=== PATIENT | female | born 2000 | race Two or more races ===

== ENCOUNTER 2022-11-20 11:36 | Emergency (ER) | payer MEDICAID, SELFPAY ==
[2022-11-20 11:59] VITALS: BP 109/72; PULSE 88; RESP 18; TEMP 36.1; O2SAT 99; BMI 24.2
--- NOTE | 2022-11-20 13:47 | ED_ITS ---
HPI - General Adult General Time Seen by Provider: 13:48 Date Seen: 11/20/22 Chief complaint: Shortness of Breath/Dyspnea Stated complaint: Difficulty Breathing Time Seen by Provider: 11/20/22 13:47 Source: patient Mode of arrival: ambulatory Limitations: no limitations History of Present Illness HPI narrative: Valeria is a 22 year old female with no past medical history who presents to the ED via private care with shortness of breath. Patient states she has had progressively worsening shortness of breath over the last 2 weeks, he has also had a nonproductive cough, to the point where she vomits with coughing fits. She noticed worsening shortness of breath today having difficulty taking a deep breath with some heaviness, also worse when she lays flat she feels like it is hard to take a deep breath, no sick contacts. She has had some diarrhea over the last 4 days, she denies any fevers but has some chills, she states she just got over her menstrual cycle. No abnormal periods. She denies any palpitations, lightheadedness or dizziness. Patient has no contributing family history. No history of any PEs or DVTs. She is not currently on any medication, she does not smoke cigarettes, she denies any alcohol use. She was more concerned today due to the worsening shortness of breath, she denies any trouble breathing while at rest, she denies any ear pain, headache, sore throat or congestion. No other concerns at this time. Related Data Previous Rx's Medication Instructions Recorded amoxicillin 875 mg-potassium 1 tab PO BID 10 days #20 tabs 11/20/22 clavulanate 125 mg tablet azithromycin 250 mg tablet See Rx Instructions PO .COMPLEX #6 11/20/22 tabs Allergies Allergy/AdvReac Type Severity Reaction Status Date / Time No Known Drug Allergies Allergy Verified 11/20/22 12:01 Review of Systems Status of ROS: Reports: 10 or more systems reviewed and unremarkable except as noted in History and below PFSH PFSH Social History Smoking Status: Never smoker Do you use any of these nicotine containing products: None How often do you have a drink containing alcohol: never AUDIT-C Alcohol total score: 0 Non-prescribed substance use: denies use service: No Exam Narrative: Exam Narrative: General: No obvious distress sitting comfortably nontoxic in appearance HEENT: Tympanic membranes within normal limits bilaterally oropharynx is clear and moist, pupils equal round reactive to light, extraocular muscles intact Lungs: Clear to auscultation bilaterally Heart: Normal sinus rhythm S1-S2 Muscle skeletal: Nontender to palpation the upper thoracic region Abdomen: Soft nontender, bowel sounds present Neuro: Alert awake and oriented x3, gait within normal limits Const: Vital Signs, click to edit/add: Vital Signs - 24 hr 11/20/22 11:59 Temperature 97.0 F L Pulse Rate [Right Pulse Oximeter] 88 Respiratory Rate 18 Blood Pressure [Ri ght Upper Arm] 109/72 Pulse Oximetry 99 Oxygen Delivery Me thod Room Air Course Course Hospital Course: Workup will include IV peripheral, CBC, CRP, CMP, COVID/influenza/RSV nasopharyngeal swab, troponin point of care and D-dimer. Differential includes viral upper respiratory illness, tuberculosis, pneumonia, strep throat illness, bronchitis, COVID, influenza, reactive airway disease, asthma, chronic cough, less likely myocarditis, pericarditis also considered was bronchiolitis and GERD. Patient was updated on her lab results, viral swabs were negative, CBC did show mild leukocytosis, neutrophils percentage 70.2, CRP mildly elevated 3.3, troponin point of care 0.0, D-dimer 0.54, patient is low risk with [place] crite patrick, 0.0, discussed with patient about obtaining CT, agree to go with imaging. Reevaluation(s) Reevaluation #1: MPRESSION: 1. Large masslike consolidation in the anteroinferior right upper lobe, likely reflecting pneumonia. Recommend follow-up to resolution to exclude underlying mass. 2. Focal area of hyperlucency with oligemia in the right lower lobe medial basilar segment, nonspecific but may relate to congenital lobar overinflation. 3. No evidence of pulmonary embolism. Patient was updated on her imaging results did show a large masslike consolidation in the anterior inferior right upper lobe likely reflecting pneumonia, vitals have been stable at this time, will treat as an outpatient, follow-up will be arranged with primary care provider over the next 4-6 weeks after treatment for repeat imaging to make sure resolution, prescription for Augmentin 875 mg b.i.d. over the next 10 days in addition with azithromycin over the next 5 days for coverage, reasons to return were given. All questions answered. Time: 17:12 Vital Signs Vital signs: Initial Vital Signs Temperature 97.0 F L 11/20/22 11:59 Temperature Source Temporal Artery Scan 11/20/22 11:59 Pulse Rate 88 11/20/22 11:59 Respiratory Rate 18 11/20/22 11:59 Blood Pressure 109/72 11/20/22 11:59 Blood Pressure Mean 84 11/20/22 11:59 Blood Pressure Position Sitting 11/20/22 11:59 Pulse Oximetry 99 11/20/22 11:59 Oxygen Delivery Method Room Air 11/20/22 11:59 Vital Signs Temperature 97.0 F L 11/20/22 11:59 Pulse Rate 88 11/20/22 11:59 Respiratory Rate 18 11/20/22 11:59 Blood Pressure 109/72 11/20/22 11:59 Pulse Oximetry 99 11/20/22 11:59 Oxygen Delivery Method Room Air 11/20/22 11:59 Temperature 97.0 F L 11/20/22 11:59 Pulse Rate 88 11/20/22 11:59 Respiratory Rate 18 11/20/22 11:59 Blood Pressure 109/72 11/20/22 11:59 Pulse Oximetry 99 11/20/22 11:59 Oxygen Delivery Method Room Air 11/20/22 11:59 Medical Decision Making Lab Data Labs: Lab Results 11/20/22 11/20/22 11/20/22 Range/Units 13:47 14:03 14:15 WBC 11.22 H (4.50-11.00) K/uL RBC 4.70 (4.00-5.20) m/uL Hgb 13.9 (12.0-16.0) gm/dL Hct 42.4 (33.0-51.0) % MCV 90 (80-100) fL MCH 30 (26-34) pg MCHC 33 (32-36) gm/dL RDW Coeff of Hussein 11.7 (11.5-15.5) % Plt Count 421 (140-440) K/uL Neut % (Auto) 78.2 H (42.0-72.0) % Lymph % (Auto) 14.5 L (20-44) % [place] % (Auto) 6.4 (0.0-11.0) % Eos % (Auto) 0.4 (0.0-7.0) % Baso % (Auto) 0.3 (0.0-3.0) % Neut # (Auto) 8.80 H (1.7-7.0) K/uL Lymph # (Auto) 1.60 (0.90-2.90) K/uL [place] # (Auto) 0.70 (0.00-0.90) K/UL Eos # (Auto) 0.00 (0.00-0.50) K/uL Baso # (Auto) 0.00 (0.00-0.30) K/uL D-Dimer Quant (PE/DVT) 0.54 H (0.00-0.50) ug/ml Sodium 140 (135-149) mmol/L Potassium 4.5 (3.6-5.1) mmol/L Chloride 104 (96-114) mmol/L Carbon Dioxide 29 (20-32) mmol/L BUN 10 (5-24) mg/dL Creatinine 0.6 (0.5-1.5) mg/dL Estimated Creat Clear 138.85 Estimated GFR 131 ml/min Glucose 112 (60-115) mg/dL Calcium 9.2 (8.4-10.6) mg/dL Total Bilirubin 0.3 (0.1-1.5) mg/dL AST 19 (12-35) U/L ALT 13 (4-35) U/L Alkaline Phosphatase 84 (40-150) U/L C-Reactive Protein 3.3 H (0.5-1.0) mg/dL NT-Pro-B Natriuret Pep 54 pg/mL Total Protein 7.9 (6.0-8.3) g/dL Albumin 4.3 (3.3-5.0) g/dL SARS-CoV-2 (PCR) Negative SARS-CoV-2 (Negative) Influenza Type A (PCR) Negative PCR FLU A (Negative) Influenza Type B (PCR) Negative PCR FLU B (Negative) RSV (PCR) Negative PCR RSV (Negative) POC Troponin I 0.00 L (0.01-0.04) ng/ml Discharge Plan Discharge Clinical Impression: Community acquired pneumonia Patient Disposition: Home, Self-Care Condition: Improved Instructions: Community Acquired Pneumonia (ED) Additional Instructions: Augmentin 875 mg twice daily for ten days in addition to Azithromycin for five days. To follow up wtih Dr. Jennifer LION here in clinic in 4-6 weeks for repeat imaging. To return if worsening symptoms. Activity Level: No Restrictions Prescriptions: New amoxicillin-pot clavulanate 875-125 mg tablet 1 tab PO BID 10 Days Qty: 20 0RF azithromycin 250 mg tablet See Rx Instructions .ROUTE .COMPLEX Qty: 6 0RF Rx Instructions: For 250 mg dose pack: take 500 mg today (day 1), then 250 mg for 4 days (days 2-5) Follow Up/Referrals: Provider,Not a Local [Primary Care Provider] - Stand Alone Forms: [employer] Info Instructions
[2022-11-20 14:23] LABS: Basophils Percent Auto 0.3 % (0.0-3.0); Eosinophils Percent Auto 0.4 % (0.0-7.0); Hematocrit 42.4 % (33.0-51.0); Hemoglobin* 13.9 gm/dL (12.0-16.0); Immature Granulocytes Pct Auto 0.2 %; Lymphocytes Percent Auto 14.5 % (20-44); Mean Corpuscular HGB Conc 33 gm/dL (32-36); Mean Corpuscular Hemoglobin 30 pg (26-34); Mean Corpuscular Volume 90 fL (80-100); Monocytes Percent Auto 6.4 % (0.0-11.0); Neutrophils Percent Auto 78.2 % (42.0-72.0); Platelet Count* 421 K/uL (140-440); RDW Coefficient of Variation % 11.7 % (11.5-15.5); White Blood Count* 11.22 K/uL (4.50-11.00)
[2022-11-20 14:38] LABS: PCR FLU A Negative PCR FLU A (Negative); PCR FLU B Negative PCR FLU B (Negative); PCR RSV Negative PCR RSV (Negative)
[2022-11-20 14:42] LABS: Slide Review Reflex No
[2022-11-20 14:51] LABS: Albumin* 4.3 g/dL (3.3-5.0); Chloride* 104 mmol/L (96-114); Sodium* 140 mmol/L (135-149)
[2022-11-20 14:52] LABS: Potassium* 4.5 mmol/L (3.6-5.1)
[2022-11-20 14:54] LABS: Alkaline Phosphatase* 84 U/L (40-150); Aspartate Amino Transferase* 19 U/L (12-35); Bilirubin Total* 0.3 mg/dL (0.1-1.5); Carbon Dioxide* 29 mmol/L (20-32); Creatinine* 0.6 mg/dL (0.5-1.5); Est. Creatinine Clearance* 138.85; Estimated Glomerular Filt Rate 131 ml/min; Total Protein* 7.9 g/dL (6.0-8.3)
[2022-11-20 14:55] LABS: Alanine Aminotransferase* 13 U/L (4-35); Blood Urea Nitrogen* 10 mg/dL (5-24); Calcium* 9.2 mg/dL (8.4-10.6); Glucose* 112 mg/dL (60-115)
[2022-11-20 14:55] LABS: SARS PCR* Negative SARS-CoV-2 (Negative)
[2022-11-20 14:57] LABS: C Reactive Protein* 3.3 mg/dL (0.5-1.0)
[2022-11-20 15:24] LABS: NT Pro B Type NatriureticPept* 54 pg/mL
[2022-11-20 15:35] LABS: D Dimer Quantitative* 0.54 ug/ml (0.00-0.50)
--- NOTE | 2022-11-20 15:44 | CRLHL7_ITS ---
For Patients: As a result of the Century Cures Act, medical imaging exams and procedure reports are released immediately into your electronic medical record. You may view this report before your referring provider. If you have questions, please contact your health care provider. INDICATION: Chest pain, shortness of breath. TECHNIQUE: CT chest PE was acquired with 95 cc Isovue 370 IV contrast. COMPARISON: None. FINDINGS: Heart and vasculature: Contrast opacification of the pulmonary arterial tree is adequate. No sign of pulmonary embolism. Heart size is normal. Thoracic aorta and pulmonary artery are normal in caliber. Lungs and pleura: Large masslike consolidation in the anteroinferior right upper lobe measuring approximately 7.4 x 6.3 cm (series 5, image 62). Focal area of hyperlucency with oligemia in the right lower lobe medial basilar segment. No pleural effusions, pleural thickening, or pneumothorax. Lymph nodes/mediastinum: No mediastinal, hilar, or axillary adenopathy. Thyroid gland is unremarkable. Chest wall: No masses. Upper abdomen: No acute or significant findings. Bones: Unremarkable for age. IMPRESSION: 1. Large masslike consolidation in the anteroinferior right upper lobe, likely reflecting pneumonia. Recommend follow-up to resolution to exclude underlying mass. 2. Focal area of hyperlucency with oligemia in the right lower lobe medial basilar segment, nonspecific but may relate to congenital lobar overinflation. 3. No evidence of pulmonary embolism. Please note that all CT scans at this facility use dose modulation, iterative reconstruction, and/or weight-based dosing when appropriate to reduce radiation dose to as low as reasonably achievable. Dictated by Marty Ojeda MD @ 11/20/2022 4:58:34 PM (Electronically Signed)
== END 2022-11-20 17:30 | disposition home or self-care (01) ==
PROVIDERS: Emergency Provider Student in an Organized Health Care Education/Training Program
DX: J18.9 Pneumonia, unspecified organism (principal)
CPT/HCPCS: 36415; 71260; 80053; 83880; 84484; 85025; 85379; 86140; 87631; 99283; 99284; Q9967

== ENCOUNTER 2023-05-14 16:21 | Outpatient (CLI) | payer MEDICAID, SELFPAY | END 2023-05-14 16:22 | disposition home or self-care (01) | PROVIDERS: Visit Provider Advanced Practice Midwife | DX: Z01.419 Encounter for gynecological examination (general) (routine) without abnormal findings (principal); N92.6 Irregular menstruation, unspecified; Z11.3 Encounter for screening for infections with a predominantly sexual mode of transmission | CPT/HCPCS: 86592; 86703; 86706; 86803; 87340; 87491; 87591 ==

== ENCOUNTER 2023-05-21 14:49 | Outpatient (CLI) | payer MEDICAID, SELFPAY | END 2023-05-21 14:50 | disposition home or self-care (01) | LOC: NFLDREF 05-24 21:18 | PROVIDERS: Referring Provider Advanced Practice Midwife; Visit Provider Nurse Practitioner Family | DX: Z79.899 Other long term (current) drug therapy (principal); F41.9 Anxiety disorder, unspecified; F32.A Depression, unspecified; F41.0 Panic disorder [episodic paroxysmal anxiety]; F43.10 Post-traumatic stress disorder, unspecified; G47.00 Insomnia, unspecified; R45.851 Suicidal ideations | CPT/HCPCS: 82306; 84443 ==